=== PATIENT | female | born 1985 | race Caucasian/White ===

== ENCOUNTER 2022-03-25 09:56 | Outpatient (CLI) | payer BC ==
[2022-03-25] MEDS ORDERED: iohexoL 240 mgI/mL, 50 ML INFUS..BTL IV ONE (10:30)
[2022-03-25] MEDS ORDERED: LIDOCAINE 1%, 20 ML MDV 20 ML ONE (10:31)
== END 2022-03-25 20:45 | disposition home or self-care (01) ==
LOC: SRD 09:56
PROVIDERS: ATTEND Specialist
DX: N39.8 Other specified disorders of urinary system (principal)
CPT/HCPCS: 58340; 74740; J2001; Q9966